=== PATIENT | female | born 2005 ===

== ENCOUNTER → 2024-08-30 08:55 | Outpatient (CLI) | payer OTHER, SELFPAY ==
--- NOTE | 2024-08-30 | DI.MRI.S_ITS ---
PROCEDURE: MR KNEE LT WO CON INDICATIONS: INTERNAL DERANGEMENT OF LEFT KNEE TECHNIQUE: Noncontrast sagittal PD fast spin echo and T2 fast spin echo with fat saturation, sagittal 3-D FLASH with fat saturation; coronal T1 spin echo and PD fast spin echo with fat saturation, and axial PD fast spin echo with fat saturation through the knee. COMPARISON: None. FINDINGS: Image quality: Excellent. Bones: Intense marrow edema is present at the medial patellar body (/12) and the lateral femoral condylar subarticular surface (02/10-). The patella is laterally subluxed relative to the femoral trochlea (02/11). There is a small impaction fracture at the subarticular surface of the lateral femoral condyle (04/25). Joints: There is a large lipohemarthrosis with a fat fluid level. There is a 1.1 x 1.2 x 1.4 cm displaced chondral fragment present in the lateral joint space adjacent to the lateral femoral condyle (616; 8); the anterior-lateral femoral condylar articular surface is the likely donor site (8; 02/20). Mora's cyst: None. Menisci: The medial meniscus is normal. The lateral meniscus is normal. The posterior root attachments are normal. Cruciate ligaments: The anterior cruciate ligament is normal. The posterior cruciate ligament is normal. Collateral ligaments: The medial collateral ligament complex is normal. The lateral collateral ligament complex is normal. Popliteus Muscle/Tendon: The popliteus muscle and tendon are normal. Extensor mechanism: The quadriceps tendon is normal. The patellar tendon is normal. The lateral patellar retinaculum is intact. There is a high-grade, partial tear of the medial patellar retinaculum at the patellar attachment site (/) . Articular cartilage: There is no other significant articular cartilage defect. Other: Tibial tuberosity-trochlear groove distance: 1.8 cm (borderline). Lateral trochlear inclination angle: 20.5? (normal). Modified Insall-Salvati ratio: 1.83 (normal). Type 3 Wiberg patella. IMPRESSION: Osseous findings related to a transient lateral patellar dislocation, with a high-grade tear of the medial patellar retinaculum, osseous impaction fracture of the subarticular lateral femoral condyle, large lipohemarthrosis, and a 1.4 cm displaced chondral fragment originating from the anterior-lateral femoral condylar articular surface. Dictated by: Colt Gonzalez M.D. on 09/01/2024 at 10:41 Approved by: Colt Gonzalez M.D. on 09/01/2024 at 11:41
== END ==
PROVIDERS: Referring Provider Physician Assistant Medical; Visit Provider Physician Assistant Medical
DX: S72.422A Displaced fracture of lateral condyle of left femur, initial encounter for closed fracture (principal); S83.8X2A Sprain of other specified parts of left knee, initial encounter; M23.92 Unspecified internal derangement of left knee; M25.062 Hemarthrosis, left knee
CPT/HCPCS: 73721